=== PATIENT | female | born 1960 | race Caucasian/White ===

== ENCOUNTER 2022-07-15 14:20 | Inpatient (IN) | payer MEDICARE, MEDICAID ==
[~2022-07-15] VITALS: Ht 152.4 cm; Wt 112.9 kg
[2022-07-15] MEDS ORDERED: CALCIUM GLUC 1,000mg/50ml-NS 50 ML IV STA (14:52)
[2022-07-15] MEDS ORDERED: SODIUM BICARBONATE 8.4 % INJ 50ML VIAL IV ONE (15:00)
[2022-07-15] MEDS ORDERED: ALBUTEROL SULF 2.5 MG/0.5ML(0.5%) NEB SOLN NEB ONE ×2 (15:00→17:15)
[2022-07-15 15:47] LABS: Basophils # (auto) 0 10 ^3/uL (0-0.2); Basophils % (auto) 0.3 % (0.0-2.0); Eosinophils # (auto) 0 10 ^3/uL (0-0.8); Eosinophils % (auto) 0.3 % (0.0-7.0); Hemoglobin 10.4 g/dL (12.2-16.2); Mean Corpuscular Volume 103.2 fL (80.0-100.0); Neutrophils # (auto) 11.9 10 ^3/uL (1.6-8.6); White Blood Cell 13.5 10^3/uL (4.4-10.8)
[2022-07-15 15:49] LABS: Hematocrit 35.1 % (36.0-46.0); Lymphocytes # (auto) 0.7 10 ^3/uL (0.4-5.4); Lymphocytes % (auto) 5.5 % (10.0-50.0); Mean Corpuscular Hemoglobin 30.6 pg (28.0-32.0); Mean Corpuscular Hgb Conc. 29.7 g/dL (32.0-36.0); Monocytes # (auto) 0.8 10 ^3/uL (0-1.3); Monocytes % (auto) 5.7 % (0.0-12.0); Neutrophils % (auto) 88.2 % (37.0-80.0); Nucleated Red Blood Cells % 0.1 %; Red Cell Distribution Width 16.1 % (11.8-14.3)
[2022-07-15 15:59] LABS: Alanine Aminotransferase 40 U/L (13-56); Albumin 3.2 g/dL (3.4-5.0); Anion Gap 10 (5-15); Aspartate Aminotransferase 60 U/L (15-37); Calcium 8.4 mg/dL (8.5-10.1); Carbon Dioxide 23 mmol/L (21-32); Chloride 92 mmol/L (98-107); GFR African American 8 mL/min; GFR Non-African American 7 mL/min; Glucose 157 mg/dL (74-106); Magnesium 3.5 mg/dL (1.6-2.6); Sodium 125 mmol/L (136-145)
[2022-07-15 16:01] LABS: Alkaline Phosphatase 177 U/L (45-117); Bilirubin, Total 0.6 mg/dL (0.2-1.0); Total Protein 7.9 g/dL (6.4-8.2)
[2022-07-15 16:10] LABS: INR 1.09 (0.9-1.15); Partial Thromboplastin Time 29.6 sec (24.6-33.4)
[2022-07-15 16:13] LABS: Blood Urea Nitrogen 92 mg/dL (7-18); Potassium 7.6 mmol/L (3.5-5.1)
[2022-07-15] MEDS ORDERED: CALCIUM GLUC 1,000mg/50ml-NS 50 ML IV ONE (16:30)
[2022-07-15] MEDS ORDERED: InsuLIN REG 1unit/0.01ml Soln (100units/ml) IV ONE (16:30)
[2022-07-15] MEDS ORDERED: DEXTROSE (50%) 50ML SYRG IV ONE (16:30)
[2022-07-15] MEDS ORDERED: SODIUM BICARBONATE 8.4% INJ 50ML SYRINGE IV ONE (16:30)
[2022-07-15] MEDS ORDERED: DEXTROSE 10% 250 ML IV ONE (16:33)
[2022-07-15] MEDS ORDERED: NITROGLYCERIN 0.4 MG SL TAB SL PRN (17:00)
[2022-07-15] MEDS ORDERED: DOCUSATE SOD 100 MG CAP PO PRN (17:00)
[2022-07-15] MEDS ORDERED: ACETAMINOPHEN 325 MG TAB PO PRN (17:00)
[2022-07-15] MEDS ORDERED: HYDROcodone-ACET 5/325MG TAB PO PRN (17:00)
[2022-07-15] MEDS ORDERED: MORPHINE SULFATE INJ 2 MG/ml SYRG IV PRN (17:00)
[2022-07-15] MEDS ORDERED: BUMETANIDE 2.5mg/10ml (0.25 mg/ml) INJ IV ONE (17:15)
[2022-07-15] MEDS ORDERED: SODIUM BICARBONATE 50ML VIAL 150 ML in D5W 5% 1,000 ML IV ONE (17:15)
[2022-07-15] MEDS ORDERED: BUMETANIDE INJECTION 12.5 MG in GIVE UN-DILUTED 0 ML IV SCH (17:15)
[2022-07-15] MEDS ORDERED: SODIUM ZIRCONIUM CYCL 10 GM PAK PO ONE (17:15)
[2022-07-15] MEDS ORDERED: FUROSEMIDE INJECTION 100 MG in SODIUM CHL 0.9% 100 ML IV ONE (17:45)
[2022-07-15 19:19] LABS: BUN/Creatinine Ratio 13.5 (10.0-20.0); Calcium 8.4 mg/dL (8.5-10.1)
[2022-07-15 19:33] LABS: Potassium 6.5 mmol/L (3.5-5.1)
[2022-07-15] MEDS: EPOETIN ALFA-EPBX 10,000 UNIT/1ML VIAL SC ONE (21:00)
[2022-07-15 22:02] LABS: Urine Bacteria MOD /hpf (None Seen); Urine Blood Negative /uL (Negative); Urine Specific Gravity 1.017 (1.001-1.035); Urine WBC 197 /hpf (0 - 5); Urine WBC Clumps PRESENT /hpf (None Seen)
[2022-07-15 22:20] LABS: Protein, Urine 243.6 mg/dL (0.0-11.9)
[2022-07-15] MEDS: AMITRIPTYLINE HCL 25 MG TAB PO SCH (22:33)
[2022-07-15] MEDS: SODIUM ZIRCONIUM CYCL 10 GM PAK PO SCH (22:34)
[2022-07-16] MEDS: ONDANSETRON HCL 4 MG/2 ML VIAL IV PRN ×2 (04:52→09:04)
[2022-07-16] MEDS: HYDROmorphone HCL 2 MG TAB PO PRN ×4 (04:52→20:47)
[2022-07-16 05:08] LABS: Basophils # (auto) 0.1 10 ^3/uL (0-0.2); Basophils % (auto) 0.9 % (0.0-2.0); Eosinophils # (auto) 0 10 ^3/uL (0-0.8); Eosinophils % (auto) 0.5 % (0.0-7.0); Hematocrit 30.6 % (36.0-46.0); Hemoglobin 9.7 g/dL (12.2-16.2); Lymphocytes # (auto) 0.9 10 ^3/uL (0.4-5.4); Lymphocytes % (auto) 10.2 % (10.0-50.0); Mean Corpuscular Hemoglobin 31.4 pg (28.0-32.0); Mean Corpuscular Hgb Conc. 31.8 g/dL (32.0-36.0); Mean Corpuscular Volume 98.8 fL (80.0-100.0); Monocytes # (auto) 0.8 10 ^3/uL (0-1.3); Monocytes % (auto) 8.9 % (0.0-12.0); Neutrophils # (auto) 6.9 10 ^3/uL (1.6-8.6); Neutrophils % (auto) 79.5 % (37.0-80.0); Red Cell Distribution Width 15.3 % (11.8-14.3); White Blood Cell 8.7 10^3/uL (4.4-10.8)
[2022-07-16 05:31] LABS: Albumin 3.2 g/dL (3.4-5.0); Calcium 8.1 mg/dL (8.5-10.1)
[2022-07-16 05:34] LABS: BUN/Creatinine Ratio 13.9 (10.0-20.0); Bilirubin, Total 0.5 mg/dL (0.2-1.0); Total Protein 7.2 g/dL (6.4-8.2)
[2022-07-16 05:37] LABS: Potassium 6.1 mmol/L (3.5-5.1)
[2022-07-16] MEDS: SODIUM ZIRCONIUM CYCL 10 GM PAK PO SCH ×3 (06:00→21:06)
[2022-07-16] MEDS: LEVOTHYROXINE SODIUM 50 MCG TAB PO SCH (09:04)
[2022-07-16] MEDS: EPOETIN ALFA-EPBX 10,000 UNIT/1ML VIAL SC ONE (11:01)
[2022-07-16] MEDS: CLOPIDOGREL BISULFATE 75 MG TAB PO SCH (11:02)
[2022-07-16 16:01] VITALS: BP 138/58
[2022-07-16 16:42] VITALS: BP 138/54
[2022-07-16] MEDS: HYDROmorphone HCL 2 MG/ML VL/or syr IV PRN (17:35)
[2022-07-16] MEDS: AMITRIPTYLINE HCL 25 MG TAB PO SCH (21:06)
[2022-07-16] MEDS: CYCLOBENZAPRINE HCL 10 MG TAB PO PRN (21:06)
[2022-07-16 22:00] VITALS: BP 151/49
[2022-07-17] MEDS: HYDROmorphone HCL 2 MG/ML VL/or syr IV PRN ×4 (00:31→22:35)
[2022-07-17 05:00] VITALS: BP 141/64
[2022-07-17 06:08] LABS: BUN/Creatinine Ratio 12.3 (10.0-20.0); Calcium 7.6 mg/dL (8.5-10.1); Potassium 5.3 mmol/L (3.5-5.1)
[2022-07-17] MEDS: LEVOTHYROXINE SODIUM 50 MCG TAB PO SCH (06:42)
[2022-07-17] MEDS: SODIUM ZIRCONIUM CYCL 10 GM PAK PO SCH ×2 (06:42→14:00)
[2022-07-17] MEDS: HYDROmorphone HCL 2 MG TAB PO PRN ×4 (06:43→20:46)
[2022-07-17] MEDS ORDERED: IOHEXOL 350 MG/ML 100ML IJ ONE (08:02)
[2022-07-17 08:35] VITALS: BP 120/59
[2022-07-17] MEDS: CLOPIDOGREL BISULFATE 75 MG TAB PO SCH (10:23)
[2022-07-17] MEDS ORDERED: levoFLOXacin 250MG 50 ML IV ONE (10:45)
[2022-07-17] MEDS ORDERED: levoFLOXacin 500MG 100 ML IV ONE (11:15)
[2022-07-17 12:40] VITALS: BP 123/69
[2022-07-17] MEDS ORDERED: ALLO100T PO (12:46)
[2022-07-17] MEDS ORDERED: FURO40TA4 PO (12:59)
[2022-07-17] MEDS ORDERED: [UNRECOGNIZED DRUG - CODE] PO (12:59)
[2022-07-17] MEDS ORDERED: FER325T PO (12:59)
[2022-07-17] MEDS ORDERED: FENO1CAP3 OR (12:59)
[2022-07-17] MEDS ORDERED: CLOP75TA70 PO (12:59)
[2022-07-17] MEDS ORDERED: CIME200T6 PO (12:59)
[2022-07-17] MEDS ORDERED: POM (12:59)
[2022-07-17] MEDS ORDERED: GEMF-19 PO (12:59)
[2022-07-17] MEDS ORDERED: GABA250S2 PO (12:59)
[2022-07-17] MEDS: levETIRAcetam 500 MG TAB PO SCH ×2 (13:00→22:33)
[2022-07-17] MEDS ORDERED: LACT10SO3 PO (13:02)
[2022-07-17] MEDS ORDERED: ISOS1TAB28 PO (13:02)
[2022-07-17] MEDS ORDERED: LEVE1TAB47 PO (13:02)
[2022-07-17] MEDS ORDERED: CYAN100L PO (13:09)
[2022-07-17] MEDS ORDERED: METO25TA5 PO (13:09)
[2022-07-17] MEDS ORDERED: ASCO500C49 PO (13:09)
[2022-07-17] MEDS ORDERED: TIZA4CAP7 PO (13:09)
[2022-07-17] MEDS ORDERED: MAGN400C3 PO (13:09)
[2022-07-17] MEDS ORDERED: PANT1INJ3 IV (13:09)
[2022-07-17] MEDS ORDERED: MET50T PO (13:09)
[2022-07-17] MEDS ORDERED: SEVE800T8 PO (13:09)
[2022-07-17] MEDS ORDERED: ASCOCRY2 OR (13:09)
[2022-07-17 15:01] VITALS: BP 139/50
[2022-07-17] MEDS: FUROSEMIDE 40 MG TAB PO SCH (17:28)
[2022-07-17] MEDS: SEVELAMER 800 MG TAB PO SCH (17:29)
[2022-07-17] MEDS: FUROSEMIDE 40 MG/4 ML VIAL IV SCH (18:00)
[2022-07-17 22:00] VITALS: BP 135/83
[2022-07-17] MEDS: METOPROLOL TARTRATE 25 MG TAB PO SCH (22:00)
[2022-07-17] MEDS: GABAPENTIN 300 MG CAP PO SCH (22:33)
[2022-07-17] MEDS: GEMFIBROZIL 600 MG TAB PO SCH (22:33)
[2022-07-17] MEDS: ALLOPURINOL 100 MG TAB PO SCH (22:34)
[2022-07-17] MEDS: AMITRIPTYLINE HCL 25 MG TAB PO SCH (22:34)
[2022-07-18] MEDS: HYDROmorphone HCL 2 MG/ML VL/or syr IV PRN ×5 (04:15→20:32)
[2022-07-18 04:37] VITALS: BP 142/119
[2022-07-18] MEDS: CYCLOBENZAPRINE HCL 10 MG TAB PO PRN ×2 (04:53→21:49)
[2022-07-18] MEDS: FUROSEMIDE 40 MG/4 ML VIAL IV SCH ×2 (06:00→18:00)
[2022-07-18 06:20] LABS: Hemoglobin 9.2 g/dL (12.2-16.2)
[2022-07-18 06:38] LABS: Calcium 8.2 mg/dL (8.5-10.1)
[2022-07-18] MEDS: FUROSEMIDE 40 MG TAB PO SCH (06:42)
[2022-07-18] MEDS: LEVOTHYROXINE SODIUM 50 MCG TAB PO SCH (06:43)
[2022-07-18] MEDS ORDERED: SODIUM CHL 0.9% 1000 ML BAG XX ONE (07:00)
[2022-07-18] MEDS: SEVELAMER 800 MG TAB PO SCH ×3 (08:00→18:00)
[2022-07-18 09:00] VITALS: BP 132/66
[2022-07-18] MEDS: ONDANSETRON HCL 4 MG/2 ML VIAL IV PRN (09:20)
[2022-07-18] MEDS ORDERED: ALLOPURINOL 100 MG TAB PO SCH (10:00)
[2022-07-18] MEDS ORDERED: MAGNESIUM OXIDE 400 MG TAB PO SCH (10:00)
[2022-07-18 12:54] VITALS: BP 142/75
[2022-07-18] MEDS: ALLOPURINOL 100 MG TAB PO SCH ×2 (13:02→21:43)
[2022-07-18] MEDS: GABAPENTIN 300 MG CAP PO SCH ×2 (13:03→21:41)
[2022-07-18] MEDS: GEMFIBROZIL 600 MG TAB PO SCH ×2 (13:03→21:43)
[2022-07-18] MEDS: CLOPIDOGREL BISULFATE 75 MG TAB PO SCH (13:03)
[2022-07-18] MEDS: METOPROLOL TARTRATE 25 MG TAB PO SCH ×2 (13:04→22:00)
[2022-07-18] MEDS: levETIRAcetam 500 MG TAB PO SCH ×2 (13:04→21:41)
[2022-07-18] MEDS: levoFLOXacin 250MG 50 ML IV SCH (13:05)
[2022-07-18] MEDS: LACTULOSE 20Gm/30ML SOLN PO SCH (13:05)
[2022-07-18] MEDS: ISOSORBIDE MONONITRATE ER 60 MG TAB PO SCH (13:08)
[2022-07-18] MEDS: HYDROmorphone HCL 2 MG TAB PO PRN ×2 (13:12→23:38)
[2022-07-18 16:45] VITALS: BP 133/54
[2022-07-18] MEDS ORDERED: EPOETIN ALFA-EPBX 4,000 UNIT/ML VIAL SC ONE (21:00)
[2022-07-18] MEDS: AMITRIPTYLINE HCL 25 MG TAB PO SCH (21:42)
[2022-07-18 22:00] VITALS: BP 103/60
[2022-07-19] MEDS: HYDROmorphone HCL 2 MG TAB PO PRN ×3 (03:41→17:55)
[2022-07-19 05:00] VITALS: BP 105/54
[2022-07-19] MEDS: LEVOTHYROXINE SODIUM 50 MCG TAB PO SCH (06:12)
[2022-07-19] MEDS: FUROSEMIDE 40 MG/4 ML VIAL IV SCH ×2 (06:12→17:55)
[2022-07-19 06:15] LABS: Potassium 4.7 mmol/L (3.5-5.1)
[2022-07-19 06:26] LABS: BUN/Creatinine Ratio 10.4 (10.0-20.0); Calcium 7.9 mg/dL (8.5-10.1)
[2022-07-19] MEDS: CYCLOBENZAPRINE HCL 10 MG TAB PO PRN ×2 (06:27→14:28)
[2022-07-19 09:00] VITALS: BP 128/58
[2022-07-19] MEDS: CLOPIDOGREL BISULFATE 75 MG TAB PO SCH (09:52)
[2022-07-19] MEDS: levETIRAcetam 500 MG TAB PO SCH ×2 (09:52→21:19)
[2022-07-19] MEDS: METOPROLOL TARTRATE 25 MG TAB PO SCH ×2 (09:52→21:20)
[2022-07-19] MEDS: ALLOPURINOL 100 MG TAB PO SCH ×2 (09:52→21:20)
[2022-07-19] MEDS: SEVELAMER 800 MG TAB PO SCH ×3 (09:52→17:55)
[2022-07-19] MEDS: GEMFIBROZIL 600 MG TAB PO SCH ×2 (09:52→21:20)
[2022-07-19] MEDS: GABAPENTIN 300 MG CAP PO SCH ×2 (09:53→21:20)
[2022-07-19] MEDS: ISOSORBIDE MONONITRATE ER 60 MG TAB PO SCH (09:53)
[2022-07-19] MEDS: LACTULOSE 20Gm/30ML SOLN PO SCH (09:53)
[2022-07-19 13:00] VITALS: BP_SYST 135; BP_SYST 98; BP_DIAS 50; BP_DIAS 56
[2022-07-19 17:00] VITALS: BP 130/60
[2022-07-19] MEDS: ONDANSETRON HCL 4 MG/2 ML VIAL IV PRN (20:10)
[2022-07-19] MEDS: HYDROmorphone HCL 2 MG/ML VL/or syr IV PRN (20:11)
[2022-07-19 21:24] VITALS: BP 130/54
[2022-07-19] MEDS ORDERED: AMITRIPTYLINE HCL 25 MG TAB ONE (21:38)
[2022-07-19] MEDS: AMITRIPTYLINE HCL 25 MG TAB PO SCH (21:39)
[2022-07-20] MEDS: HYDROmorphone HCL 2 MG TAB PO PRN ×5 (00:33→18:38)
[2022-07-20 04:27] VITALS: BP 128/38
[2022-07-20 05:43] LABS: BUN/Creatinine Ratio 12.1 (10.0-20.0)
[2022-07-20] MEDS: FUROSEMIDE 40 MG/4 ML VIAL IV SCH ×2 (06:09→18:37)
[2022-07-20] MEDS: CYCLOBENZAPRINE HCL 10 MG TAB PO PRN ×2 (06:09→16:30)
[2022-07-20] MEDS: LEVOTHYROXINE SODIUM 50 MCG TAB PO SCH (06:09)
[2022-07-20 07:22] LABS: Potassium 5.7 mmol/L (3.5-5.1)
[2022-07-20] MEDS: SEVELAMER 800 MG TAB PO SCH ×3 (08:40→18:38)
[2022-07-20] MEDS: LACTULOSE 20Gm/30ML SOLN PO SCH (08:40)
[2022-07-20] MEDS: GABAPENTIN 300 MG CAP PO SCH ×2 (08:41→21:35)
[2022-07-20] MEDS: ISOSORBIDE MONONITRATE ER 60 MG TAB PO SCH (08:41)
[2022-07-20] MEDS: ALLOPURINOL 100 MG TAB PO SCH (08:41)
[2022-07-20] MEDS: GEMFIBROZIL 600 MG TAB PO SCH (08:41)
[2022-07-20] MEDS: CLOPIDOGREL BISULFATE 75 MG TAB PO SCH (08:41)
[2022-07-20] MEDS: levETIRAcetam 500 MG TAB PO SCH ×2 (08:41→21:34)
[2022-07-20] MEDS: METOPROLOL TARTRATE 25 MG TAB PO SCH ×2 (08:42→21:35)
[2022-07-20 09:00] VITALS: BP 132/50
[2022-07-20] MEDS ORDERED: SODIUM ZIRCONIUM CYCL 10 GM PAK PO ONE (09:15)
[2022-07-20] MEDS: levoFLOXacin 250MG 50 ML IV SCH (10:32)
[2022-07-20 13:00] VITALS: BP 118/43
[2022-07-20 16:52] VITALS: BP 133/52
[2022-07-20] MEDS: SODIUM ZIRCONIUM CYCL 10 GM PAK PO SCH (17:30)
[2022-07-20] MEDS: HYDROmorphone HCL 2 MG/ML VL/or syr IV PRN (20:52)
[2022-07-20 21:30] VITALS: BP 144/42
[2022-07-20] MEDS: AMITRIPTYLINE HCL 25 MG TAB PO SCH (21:34)
[2022-07-21] MEDS: SODIUM ZIRCONIUM CYCL 10 GM PAK PO SCH ×3 (01:30→17:37)
[2022-07-21] MEDS: ONDANSETRON HCL 4 MG/2 ML VIAL IV PRN (01:36)
[2022-07-21] MEDS: HYDROmorphone HCL 2 MG TAB PO PRN ×3 (01:37→17:50)
[2022-07-21 04:19] VITALS: BP 126/57
[2022-07-21] MEDS: FUROSEMIDE 40 MG/4 ML VIAL IV SCH ×2 (05:44→17:37)
[2022-07-21 05:53] LABS: BUN/Creatinine Ratio 13.5 (10.0-20.0); Calcium 7.7 mg/dL (8.5-10.1); Potassium 5.3 mmol/L (3.5-5.1)
[2022-07-21] MEDS ORDERED: SODIUM CHL 0.9% 1000 ML BAG XX ONE (07:00)
[2022-07-21] MEDS: LEVOTHYROXINE SODIUM 50 MCG TAB PO SCH (07:03)
[2022-07-21 09:00] VITALS: BP 129/58
[2022-07-21] MEDS: SEVELAMER 800 MG TAB PO SCH ×3 (09:05→17:37)
[2022-07-21] MEDS: CLOPIDOGREL BISULFATE 75 MG TAB PO SCH (09:45)
[2022-07-21] MEDS: levETIRAcetam 500 MG TAB PO SCH ×2 (09:45→21:15)
[2022-07-21] MEDS: LACTULOSE 20Gm/30ML SOLN PO SCH (09:45)
[2022-07-21] MEDS: GABAPENTIN 300 MG CAP PO SCH ×2 (09:45→21:15)
[2022-07-21] MEDS: METOPROLOL TARTRATE 25 MG TAB PO SCH ×2 (09:49→21:15)
[2022-07-21] MEDS: ISOSORBIDE MONONITRATE ER 60 MG TAB PO SCH (09:49)
[2022-07-21 13:00] VITALS: BP 134/67
[2022-07-21 16:47] VITALS: BP 135/53
[2022-07-21] MEDS ORDERED: EPOETIN ALFA-EPBX 4,000 UNIT/ML VIAL SC ONE (21:00)
[2022-07-21] MEDS: AMITRIPTYLINE HCL 25 MG TAB PO SCH (21:14)
[2022-07-21 22:00] VITALS: BP 113/51
[2022-07-21] MEDS: HYDROmorphone HCL 2 MG/ML VL/or syr IV PRN (23:13)
[2022-07-22] MEDS: SODIUM ZIRCONIUM CYCL 10 GM PAK PO SCH ×2 (01:02→08:48)
[2022-07-22] MEDS: HYDROmorphone HCL 2 MG TAB PO PRN ×2 (03:31→09:06)
[2022-07-22 05:00] VITALS: BP 123/43
[2022-07-22] MEDS: LEVOTHYROXINE SODIUM 50 MCG TAB PO SCH (05:58)
[2022-07-22] MEDS: FUROSEMIDE 40 MG/4 ML VIAL IV SCH (05:58)
[2022-07-22 07:06] LABS: Anion Gap 8 (5-15); BUN/Creatinine Ratio 11.6 (10.0-20.0); Blood Urea Nitrogen 40 mg/dL (7-18); Carbon Dioxide 30 mmol/L (21-32); Chloride 94 mmol/L (98-107); GFR African American 17 mL/min; GFR Non-African American 14 mL/min; Glucose 94 mg/dL (74-106); Potassium 4.5 mmol/L (3.5-5.1); Sodium 132 mmol/L (136-145)
[2022-07-22] MEDS: SEVELAMER 800 MG TAB PO SCH ×2 (08:48→13:09)
[2022-07-22 09:00] VITALS: BP 146/50
[2022-07-22] MEDS: levoFLOXacin 250MG 50 ML IV SCH (10:49)
[2022-07-22] MEDS: ISOSORBIDE MONONITRATE ER 60 MG TAB PO SCH (10:50)
[2022-07-22] MEDS: LACTULOSE 20Gm/30ML SOLN PO SCH (10:50)
[2022-07-22] MEDS: CLOPIDOGREL BISULFATE 75 MG TAB PO SCH (10:51)
[2022-07-22] MEDS: GABAPENTIN 300 MG CAP PO SCH (10:51)
[2022-07-22] MEDS: levETIRAcetam 500 MG TAB PO SCH (10:51)
[2022-07-22] MEDS: METOPROLOL TARTRATE 25 MG TAB PO SCH (10:51)
[2022-07-22 11:53] VITALS: BP 146/50
[2022-07-22 13:00] VITALS: BP 145/54
== END 2022-07-22 15:30 | disposition home or self-care (01) | DRG 640 ==
LOC: EDBD 14:20 → ER 14:20 → TELE 16:51 → TELE-WESTW 07-16 15:25
PROVIDERS: ADMIT Nurse Practitioner; ATTEND Nurse Practitioner
PROC: 5A1D70Z Performance of Urinary Filtration, Intermittent, Less than 6 Hours Per Day (ICD-10-PCS; principal; 2022-07-16)
PROC: 5A1D70Z Performance of Urinary Filtration, Intermittent, Less than 6 Hours Per Day (ICD-10-PCS; 2022-07-18)
PROC: 5A1D70Z Performance of Urinary Filtration, Intermittent, Less than 6 Hours Per Day (ICD-10-PCS; 2022-07-21)
DX: E87.5 Hyperkalemia (principal); G93.41 Metabolic encephalopathy; J96.21 Acute and chronic respiratory failure with hypoxia; N18.6 End stage renal disease; I69.351 Hemiplegia and hemiparesis following cerebral infarction affecting right dominant side; R04.2 Hemoptysis; I12.0 Hypertensive chronic kidney disease with stage 5 chronic kidney disease or end stage renal disease; Z68.42 Body mass index [BMI] 45.0-49.9, adult; E66.9 Obesity, unspecified; I25.10 Atherosclerotic heart disease of native coronary artery without angina pectoris; Z20.822 Contact with and (suspected) exposure to COVID-19; E11.22 Type 2 diabetes mellitus with diabetic chronic kidney disease; E11.40 Type 2 diabetes mellitus with diabetic neuropathy, unspecified; I27.20 Pulmonary hypertension, unspecified; F17.200 Nicotine dependence, unspecified, uncomplicated; R00.1 Bradycardia, unspecified; E87.1 Hypo-osmolality and hyponatremia; G40.909 Epilepsy, unspecified, not intractable, without status epilepticus; M10.9 Gout, unspecified; N28.89 Other specified disorders of kidney and ureter; Z91.15 Patient's noncompliance with renal dialysis; J44.9 Chronic obstructive pulmonary disease, unspecified; Z88.6 Allergy status to analgesic agent; Z88.0 Allergy status to penicillin; Z90.49 Acquired absence of other specified parts of digestive tract; Z88.2 Allergy status to sulfonamides; Z90.5 Acquired absence of kidney; Z85.528 Personal history of other malignant neoplasm of kidney; Z85.43 Personal history of malignant neoplasm of ovary; Z99.2 Dependence on renal dialysis; Z99.3 Dependence on wheelchair; Z95.5 Presence of coronary angioplasty implant and graft; Z99.81 Dependence on supplemental oxygen
CPT/HCPCS: 36415; 70450; 71045; 71260; 74177; 76775; 78582; 80048; 80053; 81001; 82570; 82962; 83735; 83880; 84156; 84300; 84443; 84484; 85014; 85018; 85025; 85379; 85610; 85730; 87086; 87088; 87186; 87426; 90935; 93005; 93306; 93970; 94640; 96365; 96366; 96375; 99291; G0378; J1642; J1815; J1956; J2405